=== PATIENT | female | born 1980 | race Caucasian/White ===

== ENCOUNTER 2016-08-18 11:29 | Emergency (ER) | payer BC ==
[2016-08-18] MEDS ORDERED: METOCLOPRAMIDE 10 MG/2 ML VIAL ONE (14:11)
[2016-08-18] MEDS ORDERED: KETOROLAC 30 MG/ML VIAL ONE (14:12)
[2016-08-18] MEDS ORDERED: DIPHENHYDRAMINE 50 MG/ML VIAL ONE (14:12)
[2016-08-18] MEDS ORDERED: SODIUM CHLORIDE 0.9% 1,000 ML ONE (14:12)
[2016-08-18] MEDS ORDERED: DILAUDID 1 MG/ML AMP ONE (17:08)
== END 2016-08-18 17:20 | disposition home or self-care (01) ==
LOC: ER 11:29
DX: G43.B0 Ophthalmoplegic migraine, not intractable (principal)
CPT/HCPCS: 70450; 71010; 93005; 96361; 96374; 96375

== ENCOUNTER 2016-08-20 12:42 | Emergency (ER) | payer BC ==
[2016-08-20] MEDS ORDERED: METOCLOPRAMIDE 10 MG/2 ML VIAL ONE (16:22)
[2016-08-20] MEDS ORDERED: SODIUM CHLORIDE 0.9% 1,000 ML ONE (16:23)
[2016-08-20] MEDS ORDERED: DIPHENHYDRAMINE 50 MG/ML VIAL ONE (16:23)
[2016-08-20] MEDS ORDERED: KETOROLAC 30 MG/ML VIAL ONE (16:43)
== END 2016-08-20 18:10 | disposition home or self-care (01) ==
LOC: ER 12:42
CPT/HCPCS: 36415; 80053; 81003; 82553; 83880; 84439; 84443; 84484; 84703; 85025; 87804; 93005; 96361; 96374; 96375